=== PATIENT | female | born 1995 | race Caucasian/White ===

== ENCOUNTER → 2018-01-16 12:57 | Outpatient (CLI) | payer MEDICAID, SELFPAY ==
--- NOTE | 2018-01-16 | US_ITS ---
US OB biophysical profile, US OB follow up, US SD Ratio umbilcal artery, Indication: ITS.REASON: US OB- BPP Growth- IUGR ORDERING PHYSICIAN: Betsy Stephens MD PATIENT AGE: 22 years FINDINGS: The following parameters are obtained: Single live fetus is present in cephalic presentation. Average ultrasound age is 30w6d . Estimated due date by ultrasound is Due 03/21/2018. The established due date is given as 04-18. Estimated weight is 1533 g . This is 76 percentile based on established due date. There are no previous exams available at this institution. BPD: 32w0d OFD: 30w6d HC: 31w1d AC: 30w1d FL: 29w5d heart rate: 134 bpm. HC/AC: 1.09 (0.99-1.21) Cephalic index: 80% (70-86%) FL/BPD: 71% (71-87%) FL/AC: 22% (20-24%) Amniotic fluid index: 10 cm Qualitative AFV: 2 breathing movements: 2 Gross body movements: 2 Tone: 2 Biophysical profile score: 8/8 Doppler evaluation of the umbilical artery: SD ratio: 3.5 Resistive index: 0.71 No obvious anomalies evident. Placenta: Posterior, grade 1 IMPRESSION: 1. Single live fetus in cephalic presentation with an average ultrasound age of 30 weeks and 6 days. 2. Biophysical profile 8 of 8. 3. S/P ratio 3.5 and resistive index 0.71. These are below the 95th percentile for estimated age. 4. Posterior grade 1 placenta. No obvious abruption or previa
== END ==
PROVIDERS: PCP Internal Medicine Adolescent Medicine; Visit Provider Obstetrics & Gynecology
DX: O36.5990 Maternal care for other known or suspected poor fetal growth, unspecified trimester, not applicable or unspecified (principal)
CPT/HCPCS: 76816; 76819; 76820

== ENCOUNTER → 2018-01-30 09:52 | Outpatient (CLI) | payer MEDICAID, SELFPAY ==
[2018-01-30 10:14] LABS: Glucose,Fasting 79 mg/dL (60-105)
[2018-01-30 14:30] LABS: Glucose 1 Hour 96 mg/dL (74-106); Glucose 2 Hour 77 mg/dL (74-106)
[2018-01-30 14:31] LABS: Glucose 3 Hour 82 mg/dL (74-106)
== END ==
PROVIDERS: PCP Internal Medicine Adolescent Medicine; Visit Provider Obstetrics & Gynecology
DX: Z34.90 Encounter for supervision of normal pregnancy, unspecified, unspecified trimester (principal)
CPT/HCPCS: 36415; 82951

== ENCOUNTER → 2018-02-03 13:58 | Outpatient (CLI) | payer MEDICAID, SELFPAY ==
--- NOTE | 2018-02-03 | US_ITS ---
US OB biophysical profile, US SD Ratio umbilcal artery: Indication: ITS.REASON: US BPP-Abnormal Ultrasound Result ORDERING PHYSICIAN: Betsy Stephens MD PATIENT AGE: 22 years FINDINGS: Biometric measurements are not obtained. There is a single live fetus present in cephalic presentation. Placenta is posterior and grade 1. Heart rate is 136 BPM. The fetus urinary bladder slightly prominent. Three-vessel cord is noted. Amniotic fluid index: 9 cm Qualitative AFV: 2 breathing movements: 2 Gross body movements: 2 Tone: 2 Biophysical profile score: 8/8 Doppler evaluation of the umbilical artery: SD ratio: 2.4 Resistive index: 0.59 No obvious anomalies evident. Placenta: Posterior Grade 1-2 Cervix: Appears closed and measures 3 cm IMPRESSION: Single live intrauterine gestation which is inside presentation. Biophysical profile 8 of 8. JOSE is lower limits of normal at 9 cm Unremarkable Doppler evaluation of the umbilical artery
== END ==
PROVIDERS: PCP Internal Medicine Adolescent Medicine; Visit Provider Obstetrics & Gynecology
DX: O28.3 Abnormal ultrasonic finding on antenatal screening of mother (principal)
CPT/HCPCS: 76819; 76820

== ENCOUNTER 2018-02-20 16:55 | Outpatient (CLI) | payer MEDICAID, SELFPAY ==
[2018-02-20 17:23] VITALS: BP 123/62; PULSE 94; RESP 18; O2SAT 96; BMI 21.9
[2018-02-20 19:27] LABS: Microscopic, Urine URINE MICROSCOPIC (MICROSCOPIC)
[2018-02-20 19:29] LABS: Appearance,Urine CLEAR (Clear); Bilirubin,Urine Negative (Negative); Blood, Urine TRACE-L (Negative); Color,Urine YELLOW (Yellow); Glucose,Urine (UA) Negative (Negative); Ketones,Urine Negative (Negative); Leukocyte Esterase,Urine Negative (Negative); Nitrate,Urine Negative (Negative); Protein,Urine Negative (Negative); Specific Gravity, Urine 1.015 (1.005-1.030); Urobilinogen,Urine 0.2 EU/dl (0.2)
[2018-02-20 20:59] LABS: Bacteria,Urine Trace /lpf; Mucus,Urine 3+ /lpf; WBC,Urine Occasional #/hpf (0-3)
== END 2018-02-20 20:03 | disposition home or self-care (01) ==
LOC: OBOUT 16:57 → OB 16:57
PROVIDERS: Visit Provider Obstetrics & Gynecology
DX: O47.03 False labor before 37 completed weeks of gestation, third trimester (principal); Z3A.34 34 weeks gestation of pregnancy
CPT/HCPCS: 59025; 81001; 96360; 96372

== ENCOUNTER → 2018-02-24 09:37 | Outpatient (CLI) | payer MEDICAID, SELFPAY ==
--- NOTE | 2018-02-24 09:39 | US_ITS ---
US OB biophysical profile: Indication: ITS.REASON: Us BPP Growth-F/U on Abnormal Doppler ORDERING PHYSICIAN: Betsy Stephens MD PATIENT AGE: 22 years FINDINGS: The following parameters are obtained: Average ultrasound age is 35 weeks and 0 days. Estimated due date by ultrasound is 03/31/2018. Estimated weight is 5 lbs. 4 oz. +/- 12 ounces BPD: 8.89 cm equaling 36 weeks 0 days OFD: 11.17 cm equaling 36 weeks 5 days HC: 31.71 cm equaling 35 weeks 5 days AC: 29.75 cm equaling 33 weeks 6 days FL: 6.65 cm equaling 34 weeks 2 days heart rate: 144 bpm. HC/AC: 1.07 Cephalic index: 80% FL/BPD: 75% FL/AC: 22% Amniotic fluid index: 8.14 cm showing slight decrease in the previous exam at which time it was 9 cm Qualitative AFV: 2 breathing movements: 2 Gross body movements: 2 Tone: 2 Biophysical profile score: 8/8 Doppler evaluation of the umbilical artery: SD ratio: 3.3 Resistive index: 0.7 No obvious anomalies evident. Placenta: Posterior, grade one to 2 Cervix: Appears closed and measures 1.72 cm IMPRESSION: Single live third trimester gestation in cephalic presentation. With biophysical profile 8 out of 8 and JOSE lower limits of normal
== END ==
PROVIDERS: PCP Internal Medicine Adolescent Medicine; Visit Provider Obstetrics & Gynecology
DX: R93.8 Abnormal findings on diagnostic imaging of other specified body structures (principal)
CPT/HCPCS: 76816; 76819; 76820

== ENCOUNTER 2018-02-26 13:37 | Outpatient (CLI) | payer MEDICAID, SELFPAY ==
[2018-02-26 13:47] VITALS: BMI 21.9
[2018-02-26 13:48] VITALS: BP 106/58; PULSE 112; RESP 18; TEMP 36.8; O2SAT 100; BMI 21.9
[2018-02-26 14:06] LABS: Microscopic, Urine URINE MICROSCOPIC (MICROSCOPIC)
[2018-02-26 14:08] LABS: Appearance,Urine CLEAR (Clear); Bilirubin,Urine Negative (Negative); Blood, Urine Negative (Negative); Color,Urine YELLOW (Yellow); Glucose,Urine (UA) Negative (Negative); Ketones,Urine Negative (Negative); Leukocyte Esterase,Urine Negative (Negative); Nitrate,Urine Negative (Negative); PH,Urine 6.5 (5.0-8.5); Protein,Urine Negative (Negative); Specific Gravity, Urine 1.025 (1.005-1.030); Urobilinogen,Urine 0.2 EU/dl (0.2)
[2018-02-26 14:16] LABS: Bacteria,Urine 4+ /lpf; Mucus,Urine 4+ /lpf
== END 2018-02-26 15:10 | disposition home or self-care (01) ==
LOC: OBOUT 13:38 → OB 13:41
PROVIDERS: Visit Provider Obstetrics & Gynecology
DX: O60.03 Preterm labor without delivery, third trimester (principal); Z3A.35 35 weeks gestation of pregnancy
CPT/HCPCS: 59025; 81001; 87086; 96360

== ENCOUNTER → 2018-03-01 16:12 | Outpatient (REF) | payer MEDICAID, SELFPAY | LOC: LAB 16:12 | PROVIDERS: Visit Provider Nurse Practitioner Obstetrics & Gynecology | DX: O28.3 Abnormal ultrasonic finding on antenatal screening of mother (principal); O60.03 Preterm labor without delivery, third trimester; O99.810 Abnormal glucose complicating pregnancy; O99.013 Anemia complicating pregnancy, third trimester; Z3A.35 35 weeks gestation of pregnancy | CPT/HCPCS: 86403 ==

== ENCOUNTER 2018-03-16 04:11 | Inpatient (IN) ==
[2018-03-16 04:46] LABS: Microscopic, Urine URINE MICROSCOPIC (MICROSCOPIC)
[2018-03-16 04:48] LABS: Appearance,Urine CLEAR (Clear); Bilirubin,Urine Negative (Negative); Blood, Urine Negative (Negative); Color,Urine YELLOW (Yellow); Glucose,Urine (UA) Negative (Negative); Ketones,Urine Negative (Negative); Leukocyte Esterase,Urine 2+ (Negative); Protein,Urine Negative (Negative); Specific Gravity, Urine <= 1.005 (1.005-1.030); Urobilinogen,Urine 0.2 EU/dl (0.2)
[2018-03-16 04:55] LABS: Bacteria,Urine 1+ /lpf; WBC,Urine TNTC #/hpf (0-3)
[2018-03-16 05:45] VITALS: BP 120/63
[2018-03-16 06:01] LABS: Basophils % 0.2 % (0.1-2.0); Eosinophils # 0.1 K/mm3 (0.0-0.4); Eosinophils % 0.6 % (0.1-12.0); Hematocrit 47.1 % (37.0-47.0); Hemoglobin 14.8 g/dL (12.2-16.2); Lymphocytes # 1.6 K/mm3 (0.7-4.5); Lymphocytes % 18.1 K/mm3 (10-50); Mean Corpuscular HGB Conc 31.5 g/dL (31.8-35.4); Mean Corpuscular Hemoglobin 28.5 pg (27.0-31.2); Mean Corpuscular Volume 90.6 fl (81-99); Mean Platelet Volume 7.8 fl (7.4-10.4); Monocytes # 0.6 K/mm3 (0.1-1.0); Monocytes % 6.3 % (1.7-9.3); Neutrophils # 6.7 K/mm3 (1.8-7.8); Neutrophils % 74.8 % (37.0-80.0); Platelet Count 204 K/mm3 (142-424); Red Blood Count 5.19 M/mm3 (4.20-5.40); Red Cell Distribution Width 13.7 % (11.5-17.5); White Blood Count 8.9 K/mm3 (4.8-10.8)
--- NOTE | 2018-03-16 14:12 | History & Physical Report ---
OB - H&P: HPI Antepartum - History of Present Illness Chief complaint: contractions History of present illness: @ 37+ wks presented in active labor Cervix 6cm at admission patient began care elsewhere and transferred to this practice when she moved into the area approximately 30 wks complicated by contractions and advanced dilation 3cm at 34 wks. [facility] History I have reviewed the patient's past medical history: Yes Medical History: Denies:: Anxiety, Depression, Diabetes Mellitus Type 1, Diabetes Mellitus Type 2, Hyperlipidemia, Hypertension, Migraine, MRSA, Seizures Other Surgeries: No: Amputation: No Fractures: No - *Social History Educational Level: Completed Grade School Smoking Status: Former smoker Alcohol Intake: never Substance Use Type: denies use Occupational Status: unemployed - Psychiatric History Expresses thoughts of harming self/others: None Pschychiatric History:: Denies:: Anxiety, Depression *Family Hx:: No significant family history : 3 Para: 2 LMP comments: Review of Systems - Constitutional Denies chills, Denies fever(s) - Eyes Denies blurry vision, Denies double vision - ENT Denies bleeding gums - *Cardiovascular Denies chest pain, Denies shortness of breath - *Respiratory Denies shortness of breath - *Gastrointestinal Denies abdominal pain, Denies nausea, Denies vomiting - *Genitourinary Denies abnormal vaginal bleeding - *Musculoskeletal Reports back pain - Integumentary/Breasts Denies nipple discharge - *Neurologic Denies headache(s) - Psychiatric Denies anxiety, Denies depression - Hematologic/Lymphatic Denies easy bleeding, Denies easy bruising Meds Home Medications Medication Instructions Recorded Confirmed Type pediatric multivitamin no.49 2 tab PO DAILY tab 01/13/18 03/16/18 History chewable tablet Allergies Allergy/AdvReac Type Severity Reaction Status Date / Time No Known Allergies Allergy Verified 03/09/18 10:43 OB - H&P: Exam - Physical Exam Vital signs: Temp Pulse Resp BP Pulse Ox 97.4 F L 82 20 120/63 97 03/16/18 04:34 03/16/18 05:43 03/16/18 05:43 03/16/18 05:43 03/16/18 04:34 - Constitutional no acute distress - Routine Respiratory Exam Present: CTA bilaterally - Routine Abdominal Exam Present: soft. Absent: tenderness, distended - Routine Exam External: Absent: erythema, tenderness (cervix 6cm) - Routine Extremities Exam Absent: edema, calf tenderness - Routine Skin Exam Absent: rash - Routine Neurological Exam Present: alert, oriented X3 - Routine Psychiatric Exam Absent: depressed, anxious OB - Results - Labs Labs: Short CBC 03/16/18 Range/Units 05:15 WBC 8.9 (4.8-10.8) K/mm3 Hgb 14.8 (12.2-16.2) g/dL Hct 47.1 H (37.0-47.0) % Plt Count 204 (142-424) K/mm3 Urine 03/16/18 Range/Units 04:38 Urine Color Yellow (Yellow) Urine Appearance Clear (Clear) Urine pH 6.0 (5.0-8.5) Ur Specific [place] <= 1.005 (1.005-1.030) Urine Protein Negative (Negative) Urine Glucose (UA) Negative (Negative) - Imaging and Cardiology nst Status: image reviewed by me Additional comments: baseline 140s, normal variability, reactive Category 1 tracing OB - A/P Antepartum (1) Active labor at term Current visit: Yes Status: Acute (2) Anemia complicating in third trimester Current visit: No Status: Acute - Additional Plan Additional Information:: Admit for active labor Epidural at patient request status reassuring Anticipate
--- NOTE | 2018-03-16 15:36 | Procedure Note ---
- Delivery Note Delivery Date:: 03/16/18 Delivery Time:: 12:30 Anesthesia Type: None Was labor medically induced?: No Infant delivered prior to 39 weeks?: Yes Gender: Male at 1 minute: 8 at 5 minutes: 9 Delivery Procedure:: Spontaneous vaginal delivery of vigorous male over intact perineum. No nuchal cord or shoulder dystocia noted at delivery; infant placed on maternal abdomen for bulb suction. Placenta delivered spontaneously and intact. No perineal, vaginal, cervical lacerations. EBL 300cc; all counts correct Mom/baby stable to recovery. Placental Delivery Description: Spontaneous
[2018-03-17 07:15] LABS: Hemoglobin 8.5 g/dL (12.2-16.2)
--- NOTE | 2018-03-17 23:18 | Progress Note ---
Internal Medicine - PN: Subj *Date: 03/17/18 *Time: 11:15 Interval history: PPD #1 No complaints Lochia appropriate Hgb 8.5 (admission 14.8); asymptomatic with anemia Tolerating regular diet, ambulating and voiding without difficulty Exam Vital signs and Labs for Last 24 Hours: Temp Pulse Resp BP Pulse Ox 97.4 F L 82 20 120/63 97 03/16/18 04:34 03/16/18 05:43 03/16/18 05:43 03/16/18 05:43 03/16/18 04:34 Laboratory Results - last 24 hr 03/17/18 06:45: Hgb 8.5 L, Hct 26.0 L I & O for Last 24 hours: Intake & Output 03/15/18 03/16/18 03/17/18 03/18/18 11:59 11:59 11:59 11:59 Weight 134 lb Microbiology Reports for the Last 24 Hours: Microbiology 03/16/18 04:38 Urine,Clean Catch Urine Culture - Preliminary NO GROWTH AFTER 24 HOURS - Constitutional no acute distress - *Routine Respiratory Exam Absent: respiratory distress - *Routine Cardiovascular Exam Absent: tachycardia - *Routine Abdominal Exam Present: soft. Absent: tenderness, distended, guarding - *Routine Extremities Exam Absent: edema, calf tenderness - *Routine Skin Exam Absent: rash - *Routine Neurological Exam Present: alert, oriented X3. Absent: altered mental status - Routine Psychiatric Exam Present: normal affect. Absent: depressed, anxious Assessment and Plan (1) Active labor at term Current visit: Yes Status: Acute Category: Medical (2) Anemia complicating in third trimester Current visit: No Status: Acute Category: Medical Code(s): O99.013 - Anemia complicating , third trimester (3) Normal vaginal delivery Current visit: Yes Status: Acute Category: Medical Code(s): O80 - Encounter for full-term uncomplicated delivery (4) Anemia due to acute blood loss Current visit: Yes Status: Acute Category: Medical Code(s): D62 - Acute posthemorrhagic anemia - Assessment and plan all Dx Assessment and Plan for all problems:: Routine care FeSO4 supplementation for anemia Anticipate discharge home tomorrow
--- NOTE | 2018-03-18 12:20 | Discharge Summary ---
General - General Admission date:: 03/16/18 Discharge date: 03/18/18 HPI HPI: PPD #2 no new complaints lochia appropriate; asymptomatic with anemia ready for discharge Hospital Course Hospital Course: normal uneventful course asymptomatic anemia discharged home PPD #2 Objective Vital signs: Temp Pulse Resp BP Pulse Ox 97.4 F L 82 20 120/63 97 03/16/18 04:34 03/16/18 05:43 03/16/18 05:43 03/16/18 05:43 03/16/18 04:34 no acute distress - *Routine HEENT Exam Head: Present: normocephalic, atraumatic ENT: Present: mucous membranes moist - *Routine Respiratory Exam Absent: respiratory distress - *Routine Cardiovascular Exam Absent: tachycardia - *Routine Abdominal Exam Present: soft. Absent: tenderness, distended - *Routine Extremities Exam Absent: edema, calf tenderness - *Routine Skin Exam Absent: rash - Routine Psychiatric Exam Absent: depressed, anxious DS: Diagnosis - Discharge Diagnosis (1) Active labor at term Status: Acute (2) Anemia complicating in third trimester Status: Acute (3) Normal vaginal delivery Status: Acute (4) Anemia due to acute blood loss Status: Acute Discharge Plan - Patient Discharge Instructions ACTIVITY: Continue current activity DIET: regular diet - Follow up Plan Disposition: Home, Self-Halfway Medications: Home Medications Medication Instructions Recorded Confirmed Type pediatric multivitamin no.49 2 tab PO DAILY tab 01/13/18 03/16/18 History chewable tablet Prescriptions/Medication Reconciliation: New Ibuprofen [Motrin 400mg tablet] 800 mg PO Q8HP PRN tablet PRN Reason: Mild Pain Continue pediatric multivitamin no.49 chewable tablet 2 tab PO DAILY tab
== END 2018-03-18 12:42 | disposition home or self-care (01) ==
LOC: OBOUT 04:11 → OB 04:14
PROVIDERS: ADMIT Nurse Practitioner Obstetrics & Gynecology; ATTEND Nurse Practitioner Obstetrics & Gynecology